=== PATIENT | female | born 1985 | race Caucasian/White ===

== ENCOUNTER 2017-05-23 15:33 | Emergency (ER) | payer OTHER ==
[~2017-05-23] VITALS: Ht 175.3 cm; Wt 72.6 kg
[2017-05-23 16:01] LABS: URINE BILIRUBIN 1+ (Negative); URINE BLOOD TRACE (Negative); URINE CLARITY CLEAR; URINE COLOR YELLOW; URINE GLUCOSE-RANDOM* NEGATIVE (Negative); URINE KETONES NEGATIVE (Negative); URINE LEUKOCYTES NEGATIVE (Negative); URINE NITRITE NEGATIVE (Negative); URINE PROTEIN (DIPSTICK) NEGATIVE (Negative); URINE SPECIFIC GRAVITY >= 1.030 (1.005-1.035); URINE UROBILINOGEN 0.2 E.U./dl (0.2-1.0)
[2017-05-23 16:09] LABS: ICTOTEST (BILI CONFIRMATORY) Negative (Negative)
[2017-05-23 16:43] LABS: ABSOLUTE NEUTROPHILS 4.8 thou/uL (1.4-8.2); BASOPHILS 0.6 % (0.0-2.0); EOSINOPHILS 1.3 % (0.0-3.0); HEMATOCRIT 40.8 % (37.0-47.0); LYMPHOCYTES 29.8 % (24.0-44.0); MCH 32.5 pg (26.0-34.0); MCHC 34.2 g/dL (28.0-37.0); MONOCYTES 8.1 % (1.0-8.0); PLATELET COUNT 304 thou/uL (150-400); POLYS 60.2 % (36.0-66.0); RBC 4.29 mil/uL (4.20-5.00); RDW 12.7 % (10.5-14.5)
[2017-05-23 16:50] LABS: CALCIUM 9.1 mg/dL (8.5-10.1); CREATININE 0.8 mg/dL (0.6-1.0); POTASSIUM 3.3 mmol/L (3.5-5.1)
[2017-05-23 16:56] LABS: ALBUMIN 4.3 g/dL (3.4-5.0); TOTAL BILIRUBIN 0.4 mg/dL (<0.1-1.0); TOTAL PROTEIN 7.4 g/dL (6.4-8.2)
[2017-05-23] MEDS ORDERED: BENTYL 20 MG TA20 M1 PO (18:20)
== END 2017-05-23 18:28 | disposition home or self-care (01) ==
LOC: ER 15:33
PROVIDERS: Nurse Practitioner Family
DX: A08.4 Viral intestinal infection, unspecified (principal); F17.210 Nicotine dependence, cigarettes, uncomplicated

== ENCOUNTER 2018-02-16 19:38 | Emergency (ER) | payer OTHER ==
[~2018-02-16] VITALS: Ht 175.3 cm; Wt 72.6 kg
[~2018-02-16 19:38] MED LIST: BENTYL 20 MG TA20 M1 PO
[2018-02-16] MEDS ORDERED: WELLBUTRIN SR100 MG PO (19:46)
[2018-02-16] MEDS ORDERED: TOPAMAX 100 MG100 MG PO (19:47)
[2018-02-16 20:24] LABS: HEMATOCRIT 39.3 % (37.0-47.0)
[2018-02-16] MEDS ORDERED: NAPROSYN500 MG PO (21:00)
[2018-02-16] MEDS ORDERED: PROVERA10 MG PO (21:00)
[2018-02-16 21:09] VITALS: BP 117/72
== END 2018-02-16 21:11 | disposition home or self-care (01) ==
LOC: ER 19:38
PROVIDERS: Emergency Medicine
DX: N92.0 Excessive and frequent menstruation with regular cycle (principal); F17.210 Nicotine dependence, cigarettes, uncomplicated; M41.9 Scoliosis, unspecified; Z98.890 Other specified postprocedural states